=== PATIENT | male | born 1990 | race Two or more races ===

== ENCOUNTER 2018-01-16 13:29 | Emergency (ER) | payer MEDICAID ==
[~2018-01-16] VITALS: Ht 167.6 cm; Wt 80.3 kg
[2018-01-16 13:48] VITALS: BP 116/66
[2018-01-16 14:27] LABS: APPEARANCE,URINE CLEAR; BILIRUBIN, URINE NEGATIVE (NEGATIVE); COLOR,URINE PALE YELLOW; GLUCOSE, URINE (UA) NEGATIVE (NEGATIVE); KETONES,URINE NEGATIVE (NEGATIVE); LEUKOCYTE ESTERASE ,URINE NEGATIVE (NEGATIVE); NITRITE,URINE NEGATIVE (NEGATIVE); PH,URINE 9 (4.5-8.0); PROTEIN,URINE NEGATIVE (NEGATIVE); UROBILINOGEN,URINE NORMAL MG/DL (0.0-1.0)
[2018-01-16] MEDS ORDERED: Ketorolac 60mg Inj IM ONE (14:30)
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
[2018-01-16] MEDS ORDERED: Lidocaine 1% MPF 10mg/ml 5ml INJ ONE (15:45)
[2018-01-16] MEDS ORDERED: Azithromycin 250mg tab ORAL ONE (15:45)
[2018-01-16] MEDS ORDERED: cefTRIAXone 1 GM in NS 55 ML IVPB ONE (15:45)
[2018-01-16] MEDS ORDERED: IBUPROFEN800 MG ORAL (16:05)
--- NOTE | 2018-01-16 16:24 | Diagnostic Imaging Report ---
Indication:Scrotal pain Technique: Real time grayscale and duplex Doppler imaging of the scrotum performed. Comparison: None Findings: The size, contour, and echogenicitiy of the testis appear normal bilaterally. Right testis measures 4.3 x 2.7 x 3.1 cm. Left testis 4.3 x 2.9 x 3.4 cm. There is no testicular mass or evidence of torsion. There is good doppler evidence of blood flow within both testes. Epididimi are unremarkable. There is a left varicocele present which is most evident on Valsalva with color flow images. Impression: No testicular mass or torsion. Left-sided varicocele
[2018-01-16 17:00] VITALS: BP 124/77
== END 2018-01-16 16:24 | disposition home or self-care (01) ==
LOC: EMR 14:28
DX: N45.1 Epididymitis (principal); I86.1 Scrotal varices; N50.3 Cyst of epididymis
CPT/HCPCS: 76870; 81003; 96372; 96374; 99284; J0696; Q0144